=== PATIENT | female | born 1995 | race Caucasian/White ===

== ENCOUNTER 2022-04-18 13:13 | Outpatient (CLI) | payer MEDICAID, SELFPAY ==
[2022-04-18 19:22] LABS: Chloride* 104 mmol/L (96-114); Potassium* 3.9 mmol/L (3.6-5.1); Sodium* 141 mmol/L (135-149)
[2022-04-18 19:24] LABS: Creatinine* 0.8 mg/dL (0.5-1.5); Estimated Glomerular Filt Rate 103 ml/min
[2022-04-18 19:25] LABS: Blood Urea Nitrogen* 11 mg/dL (5-24); Calcium* 9.2 mg/dL (8.4-10.6); Carbon Dioxide* 27 mmol/L (20-32); Glucose* 86 mg/dL (60-115)
== END 2022-04-18 13:14 | disposition home or self-care (01) ==
PROVIDERS: PCP Family Medicine; Visit Provider Family Medicine
DX: R53.83 Other fatigue (principal)
CPT/HCPCS: 80048; 84443

== ENCOUNTER 2022-07-15 09:05 | Outpatient (CLI) | payer MEDICAID, SELFPAY ==
[2022-07-15 11:38] LABS: Cholesterol* 201 mg/dL (90-199)
[2022-07-15 11:39] LABS: HDL Cholesterol* 38 mg/dL (>=50); LDL Cholesterol Calculated 126 mg/dL (<100); Triglycerides* 185 mg/dL (40-149)
== END 2022-07-15 09:06 | disposition home or self-care (01) ==
LOC: NFLDREF 09:06
PROVIDERS: PCP Family Medicine; Visit Provider Obstetrics & Gynecology
DX: Z01.419 Encounter for gynecological examination (general) (routine) without abnormal findings (principal); E66.9 Obesity, unspecified; N91.2 Amenorrhea, unspecified; E28.2 Polycystic ovarian syndrome
CPT/HCPCS: 80061

== ENCOUNTER 2022-09-16 13:09 | Outpatient (CLI) | payer MEDICAID, SELFPAY ==
[2022-09-16 16:31] LABS: Chlamydia DNA Amplified* NOT DETECTED (No Detected); GC DNA Amplified* NOT DETECTED (No Detected)
== END 2022-09-16 13:10 | disposition home or self-care (01) ==
LOC: NFLDREF 13:10
PROVIDERS: PCP Family Medicine; Visit Provider Physician Assistant
DX: N89.8 Other specified noninflammatory disorders of vagina (principal)
CPT/HCPCS: 87491; 87591

== ENCOUNTER 2024-01-06 09:47 | Outpatient (CLI) | payer MEDICAID, SELFPAY | END 2024-01-06 09:48 | disposition home or self-care (01) | PROVIDERS: PCP Family Medicine; Visit Provider Obstetrics & Gynecology | DX: R10.2 Pelvic and perineal pain (principal); Z11.3 Encounter for screening for infections with a predominantly sexual mode of transmission; Z13.220 Encounter for screening for lipoid disorders; Z13.29 Encounter for screening for other suspected endocrine disorder; Z13.21 Encounter for screening for nutritional disorder; Z13.228 Encounter for screening for other metabolic disorders | CPT/HCPCS: 80053; 80061; 82306; 84443; 87491; 87591 ==

== ENCOUNTER 2024-02-08 09:36 | Outpatient (CLI) | payer MEDICAID, SELFPAY ==
--- NOTE | 2024-02-08 09:45 | CRLHL7_ITS ---
For Patients: As a result of the Century Cures Act, medical imaging exams and procedure reports are released immediately into your electronic medical record. You may view this report before your referring provider. If you have questions, please contact your health care provider. INDICATION: Pain COMPARISON: none TECHNIQUE: 2D holliday scale and color Doppler images were acquired of the pelvis using a transabdominal and transvaginal approach. Spectral Doppler evaluation of both ovaries also performed. FINDINGS: Sonographic images demonstrate a normal size and smooth outer contour of the uterus. Uterus measures 9.1 cm in length by 4.5 cm in AP diameter by 5.8 cm in transverse dimension. The myometrium has a normal uniform echotexture. The endometrial lining measures 12 mm in composite thickness. The right ovary measures 3.4 x 2.0 x 3.2 cm in size and the left ovary measures 3.3 x 2.2 x 1.8 cm. The ovaries demonstrate normal arterial and venous blood flow on color Doppler analysis. There are no suspicious fluid collections within the cul-de-sac. Normal spectral Doppler evaluation of both ovaries. IMPRESSION: Endometrial thickness 1.2 cm with mild heterogeneity. No endometrial fluid or uterine fibroid. Normal ovaries. No torsion. No adnexal mass or excess pelvic free fluid. Dictated by Fernando Ryan MD @ 02/09/2024 5:50:07 AM (Electronically Signed)
== END 2024-02-08 09:37 | disposition home or self-care (01) ==
LOC: US 09:37
PROVIDERS: PCP Family Medicine; Visit Provider Obstetrics & Gynecology
DX: R10.2 Pelvic and perineal pain (principal); R93.89 Abnormal findings on diagnostic imaging of other specified body structures
CPT/HCPCS: 76830; 76856; 93976

== ENCOUNTER 2024-02-16 09:34 | Outpatient (CLI) | payer MEDICAID, SELFPAY | END 2024-02-16 09:35 | disposition home or self-care (01) | LOC: NFLDREF 02-17 15:52 | PROVIDERS: PCP Family Medicine; Referring Provider Family Medicine; Visit Provider Obstetrics & Gynecology | DX: Z13.220 Encounter for screening for lipoid disorders (principal); Z13.1 Encounter for screening for diabetes mellitus | CPT/HCPCS: 80061; 82947 ==

== ENCOUNTER 2024-03-17 07:55 | Day surgery (SDC) | payer MEDICAID, SELFPAY ==
[2024-03-17] VITALS (14 sets, daily range): BP systolic 102–118; BP diastolic 55–70; PULSE 73–100; RESP 14–20; TEMP 36.1–36.7; O2SAT 93–99; BMI 35.6
[2024-03-17 08:39] LABS: Ur HCG Qualitative* Negative (Negative)
--- NOTE | 2024-03-17 08:43 | W.PM.H&PU ---
History & Physical Update History & Physical Update H&P Reviewed and patient assessed: No changes noted
[2024-03-17 08:44] LABS: Hemoglobin* 13.4 gm/dL (12.0-16.0)
[2024-03-17] MEDS: LACTATED RINGERS 1000 ML 1,000 ML 100 ML IV ×2 (08:50→11:35)
[2024-03-17] MEDS: SODIUM CHLORIDE 0.9 % (FLUSH) 10 ML SYRINGE IVF (08:55)
[2024-03-17] MEDS: BUPIVACAINE 0.5% 30 ML INJECTION (11:39)
--- NOTE | 2024-03-17 11:43 | SUR.OPER ---
DEFICIT OF 120ML
--- NOTE | 2024-03-17 11:54 | P.GYNPRC_ITS ---
Procedure Note Date of procedure: 03/17/[address] [facility] bill your pro fee for this procedure?: Yes Pre-op diagnosis: Chronic pelvic pain, abnormal uterine bleeding Post-op diagnosis: Chronic pelvic pain-endometriosis, abnormal uterine bleeding-suspected endometrial polyps Procedure: Laparoscopic excision and fulguration of endometriosis implants, hysteroscopy, dilation and curettage Anesthesia: GETA Complications: None Surgeon: Leandro Culver MD Central Sterile Technician: Annabel Riggs Estimated blood loss (mL): 10 IV fluids (mL): 1,000 Urine Output (mL): 300 (Clear at end of procedure) Pathology: specimen obtained, sent to pathology (1. left uterosacral ligament lesion 2. right uterosacral ligament lesion 3. endometrial curetting) Condition: stable Disposition: same day Findings: Pelvic exam: cervix with evidence of previous laceration? at around 2-3 o clock. No other gross lesions or abnormal discharge. Intrauterine: Thick and fluffy endometrium with multiple polypoid like lesions. Bilateral cornual openings seen. Uterine sound of 8cm. Intra abdominal survey: Grossly normal liver, gallbladder, stomach, appendix. Evidence of endometriosis implants-multiple dark colored, powder gun lesions as follows: subcostal anterior peritoneum on the right side, anterior abdominal wall pelvic peritoneum on the right, right and left uterosacral ligaments, sigmoid epiploica, peritoneum over the right and left uterine vessels. Sigmoid colon epiploica thin adhesions to the left pelvic sidewall. Procedure Description: Patient was taken to the OR with IV fluid running and pneumatic compression stockings applied to the lower extremities. General anesthesia was obtained without difficulty. The patient was placed in the dorsal lithotomy position with Shiva type stirrups with knee bent at 30 degree angles. Patient was prepared and draped under usual sterile technique. Examination under anesthesia as above. The bladder was emptied and Mota catheter placed. Speculum was placed in the vagina. The anterior lip of the cervix was grasped with a single-tooth tenaculum. Uterine manipulator was introduced. Two Allis clamps were applied to the periumbilical skin for manual elevation of the abdomen. A vertical skin incision was made in the umbilical fold. 5 mm Optiview trocar introduced into the peritoneal cavity without difficulty. Direct visualization confirmed intraperitoneal placement. Pneumoperitoneum was established with CO2 gas to a pressure of 15mmHg. Findings as above. An intra-abdominal survey revealed normal-appearing liver, gallbladder, spleen, and lack of any visceral or vascul ar injury. The Trendelenburg position was obtained to facilitate pelvic exposure. Two 5 mm trocars were inserted on the bilateral lower quadrants and a third one was placed at the level of the umbilicus to the left under direct laparoscopic visualization. Laparoscopic [place] forceps utilized to grasp and elevate the peritoneum over lesions on the bilateral uterosacral ligament and with laparoscopic scissors removal of lesions achieved, these were sent to pathology for confirmation of diagnosis. Hemostasis achieved with monopolar device. The subcostal, anterior abdominal wall and sigmoid epiploica lesions were fulgurated. Hemostasis secured. Thin adhesions of the sigmoid epiploica to the left pelvic side wall released with grasper. The pelvis and resection sites were again evaluated, hemostasis again noted. The pelvis was irrigated and was left with about 200cc of irrigation fluid for the purposes of decreasing the risk of adhesions in the future. Trocars removed under direct visualization. All instruments were removed from the abdomen. The pneumoperitoneum was released, and correct instrument counts were confirmed. Skin incisions were closed with 4-0 Monocryl sutures in a subcuticular fashion. Attention was then placed to the vagina and completion of hysteroscopy. A bivalved speculum was inserted in the posterior aspect of the vagina. Uterine manipulator removed. A single-tooth tenaculum was used to grasp the anterior lip of the cervix. The uterus was carefully sounded to 8 cm. The cervical os was sequentially dilated to accommodate the 5 mm TrueClear hysteroscope using Hegar dilators. A 5 mm 30 degree TrueClear hysteroscope was introduced under direct visualization, and the uterus was distended with normal saline. Findings as above. Soft tissue incisor blade from TrueClear hysteroscope system was introduced under direct visualization and endometrial curettings performed with removal of polypoid lesions. Hysteroscope removed under direct visualization. Patient tolerated the procedure well. Instrument and sponge counts were correct x2. Mota catheter was removed. The patient was awakened from GETA anesthesia and taken to the recovery room in a stable condition. The patient will go home after recovering from anesthesia and meeting all the criteria for discharge. She was given instructions regarding follow-up visit in 2 weeks at the [facility]. Postop pain management, lifting restrictions, intercourse restrictions were discussed with patient before surgery all questions were answered. Fluid deficit: 130mL
--- NOTE | 2024-03-17 11:57 | W.ANESCHARGE ---
Anesthesia Charges Start Date/Time Anesthesia Start Date: 03/17/24 Anesthesia Start Time: 09:38 Stop Date/Time Anesthesia Stop Date: 03/17/24 Anesthesia Stop Time: 11:57
[2024-03-17] MEDS: fentaNYL 100 MCG/2 ML inj 50 MCG IVP ×2 (12:10→12:15)
--- NOTE | 2024-03-17 12:21 | W.ANESCHARGE ---
Anesthesia Charges Start Date/Time Anesthesia Start Date: 03/17/24 Anesthesia Start Time: 09:38 Stop Date/Time Anesthesia Stop Date: 03/17/24 Anesthesia Stop Time: 11:57
[2024-03-17] MEDS: ONDANSETRON 2 MG/ML inj 4 MG IVP (12:25)
[2024-03-17] MEDS: OXYCODONE 5 MG TABLET PO (13:03)
== END 2024-03-17 14:02 | disposition home or self-care (01) ==
PROVIDERS: PCP Family Medicine; Visit Provider Obstetrics & Gynecology
PROC: 0UDB8ZZ Extraction of Endometrium, Via Natural or Artificial Opening Endoscopic (ICD-10-PCS; CPT 58558; principal; 2024-03-17 09:15)
PROC: (CPT 49320; 2024-03-17 09:15)
DX: N93.8 Other specified abnormal uterine and vaginal bleeding (principal); R10.2 Pelvic and perineal pain; G89.29 Other chronic pain; N80.3C3 Endometriosis of bilateral uterosacral ligament(s), unspecified depth; E66.9 Obesity, unspecified
CPT/HCPCS: 58662; 58558; 00840; 36415; 81025; 85018; 86850; 86900; 86901; 88305; A9270; C1782; J0665; J1100; J1885; J2250; J2405; J2704; J2710; J3010; J7120

== ENCOUNTER 2025-02-28 15:35 | Outpatient (CLI) | payer MEDICAID, SELFPAY ==
[2025-03-02 19:00] LABS: HPV Source Cervix
[2025-03-03 15:06] LABS: Pap Test Digital Imaging Done
== END 2025-02-28 15:36 | disposition home or self-care (01) ==
PROVIDERS: PCP Family Medicine; Visit Provider Obstetrics & Gynecology
DX: Z12.4 Encounter for screening for malignant neoplasm of cervix (principal); Z11.51 Encounter for screening for human papillomavirus (HPV)
CPT/HCPCS: 87624; 87625; 88141; 88142; 88175